=== PATIENT | male | born 1960 | race Caucasian/White ===

== ENCOUNTER → 2023-04-15 09:36 | Outpatient (REF) | payer BC, SELFPAY | LOC: REG 09:36 | PROVIDERS: ATTENDING PHYSICIAN Internal Medicine Geriatric Medicine | DX: Z00.00 Encounter for general adult medical examination without abnormal findings (principal); R42 Dizziness and giddiness; E03.8 Other specified hypothyroidism; E78.2 Mixed hyperlipidemia; E55.9 Vitamin D deficiency, unspecified; Z12.5 Encounter for screening for malignant neoplasm of prostate; L85.3 Xerosis cutis; Z86.010 Personal history of colon polyps; M72.2 Plantar fascial fibromatosis; R97.20 Elevated prostate specific antigen [PSA]; Z13.31 Encounter for screening for depression | CPT/HCPCS: 36415; 84153 ==

== ENCOUNTER → 2023-06-13 09:46 | Outpatient (REF) | payer BC, SELFPAY | LOC: MRI 3T 09:46 | PROVIDERS: ATTENDING PHYSICIAN Specialist; FAMILY PHYSICIAN Internal Medicine Geriatric Medicine | DX: R97.20 Elevated prostate specific antigen [PSA] (principal) | CPT/HCPCS: 72197; A9575 ==

== ENCOUNTER → 2023-10-17 08:19 | Outpatient (REF) | payer BC, SELFPAY ==
[2023-10-17 11:40] LABS: PSA, Total - Diagnostic 2.08 ng/ml (0.0-4.0)
== END ==
LOC: REG 08:19
PROVIDERS: ATTENDING PHYSICIAN Specialist; FAMILY PHYSICIAN Internal Medicine Geriatric Medicine
DX: C61 Malignant neoplasm of prostate (principal)
CPT/HCPCS: 36415; 84153

== ENCOUNTER → 2024-01-17 06:40 | Outpatient (REF) | payer BC, SELFPAY ==
[2024-01-17 08:37] LABS: PSA, Total - Diagnostic 2.26 ng/ml (0.0-4.0)
== END ==
LOC: REG 06:40
PROVIDERS: ATTENDING PHYSICIAN Specialist; FAMILY PHYSICIAN Internal Medicine Geriatric Medicine
DX: C61 Malignant neoplasm of prostate (principal)
CPT/HCPCS: 36415; 84153

== ENCOUNTER → 2024-04-19 07:12 | Outpatient (REF) | payer BC, SELFPAY ==
[2024-04-19 08:08] LABS: Urine Albumin 1+ (Neg - Trace); Urine Bilirubin Negative (Negative); Urine Character Clear (Clear); Urine Color Yellow; Urine Glucose Negative (Negative); Urine Ketone Negative (Negative); Urine Leukocyte Negative (Negative); Urine Nitrite Negative (Negative); Urine Occult Blood Negative (Negative); Urine Specific Gravity 1.015 (<1.030); Urine Urobilinogen Negative (Neg - 1+)
[2024-04-19 08:12] LABS: % Basophils 0.7 % (0-2); % Eosinophils 3.1 % (0-6); % Immature Granulocytes 0.2 % (0-0.5); % Monocytes 8.2 % (1.7-9.3); % Neutrophils 58.8 % (42.2-75.2); Absolute Eosinophils 0.2 10^3/uL (0-0.7); Absolute Lymphocytes 1.7 10^3/uL (1.2-3.4); Absolute Monocytes 0.5 10^3/uL (0.1-0.6); Absolute Neutrophils 3.4 10^3/uL (1.4-6.5); Hematocrit 41.8 % (39.0-52.0); Hemoglobin 14.2 g/dL (13.0-18.0); Mean Corpuscular Hgb 32.1 pg (27.0-31.0); Mean Corpuscular Volume 94.4 fL (80.0-94.0); Mean Platelet Volume 9.4 fL (7.4-10.4); Nucleated Red Blood Cells % 0 % (-); Platelet Count 232 10^3/uL (130-400); Red Blood Cell Count 4.43 10^6/uL (4.70-6.10); Red Cell Dist. Width 12.7 % (11.5-14.5); White Blood Cell Count 5.7 10^3/uL (4.8-10.8)
[2024-04-19 08:34] LABS: ALT (SGPT) 25 U/L (0-50); AST (SGOT) 24 U/L (17-59); Albumin 3.8 g/dl (3.5-5.0); Alkaline Phosphatase 76 U/L (38-126); Blood Urea Nitrogen 19 mg/dl (9-20); Calcium 9.2 mg/dl (8.4-10.2); Carbon Dioxide 29 mmol/L (22-30); Chloride 103 mmol/L (98-107); Glucose 101 mg/dl (70-99); HDL Cholesterol 64 mg/dl; LDL Cholesterol, Calculated 81 mg/dl; Potassium 4.5 mmol/L (3.5-5.1); Sodium 137 mmol/L (135-145); Total Bilirubin 0.6 mg/dl (0.2-1.3); Total Cholesterol 160 mg/dl (50-199); Total Protein 6.1 g/dl (6.3-8.2); Triglyceride 75 mg/dl (10-149); Very Low Density Lipoprotein 15 mg/dl (0-30); eGFR > 60.00
[2024-04-19 08:51] LABS: Free T4 1.19 ng/dl (0.78-2.19); Vitamin D, 25-OH*** 27.4 ng/mL (30-80)
[2024-04-19 09:04] LABS: TSH 3.63 uIU/ml (0.47-4.68)
[2024-04-19 10:25] LABS: Urine Mucus Many
[2024-04-19 10:26] LABS: Urine Amorphous Seen; Urine Hyaline Cast 0-2 /LPF (0-2)
[2024-04-19 10:27] LABS: Urine Red Blood Cell 0-2 /HPF (0-2); Urine White Cell 0-2 /HPF (0-5)
== END ==
LOC: REG 07:12
PROVIDERS: ATTENDING PHYSICIAN Internal Medicine Geriatric Medicine
DX: Z00.00 Encounter for general adult medical examination without abnormal findings (principal); R42 Dizziness and giddiness; E03.8 Other specified hypothyroidism; E78.2 Mixed hyperlipidemia; E55.9 Vitamin D deficiency, unspecified; L85.3 Xerosis cutis; M72.2 Plantar fascial fibromatosis; Z13.31 Encounter for screening for depression
CPT/HCPCS: 36415; 80053; 80061; 81003; 81015; 82306; 84439; 84443; 85025; 86765

== ENCOUNTER → 2024-04-23 06:28 | Outpatient (REF) | payer BC, SELFPAY ==
[2024-04-23 08:13] LABS: PSA, Total - Diagnostic 2.14 ng/ml (0.0-4.0)
== END ==
LOC: REG 06:28
PROVIDERS: ATTENDING PHYSICIAN Specialist; FAMILY PHYSICIAN Internal Medicine Geriatric Medicine
DX: C61 Malignant neoplasm of prostate (principal)
CPT/HCPCS: 36415; 84153

== ENCOUNTER → 2024-07-09 06:36 | Outpatient (REF) | payer BC, SELFPAY ==
[2024-07-09 07:55] LABS: C-Reactive Protein < 5.00 mg/L (0.0-10.00)
[2024-07-09 08:12] LABS: Free T4 1.12 ng/dl (0.78-2.19)
[2024-07-09 08:23] LABS: Erythrocyte Sed Rate 4 mm/hour (0-20)
[2024-07-10 19:34] LABS: Thyroglobulin Antibodies <1.5 IU/mL (0.0-4.0); Thyroid Peroxidase Ab (TPO) 0.4 IU/mL (0.0-9.0)
== END ==
LOC: REG 06:36
PROVIDERS: ATTENDING PHYSICIAN Internal Medicine Geriatric Medicine
DX: R42 Dizziness and giddiness (principal); E03.8 Other specified hypothyroidism; E78.2 Mixed hyperlipidemia; E55.9 Vitamin D deficiency, unspecified; L85.3 Xerosis cutis; M72.2 Plantar fascial fibromatosis; R97.20 Elevated prostate specific antigen [PSA]; Z13.31 Encounter for screening for depression; H53.2 Diplopia
CPT/HCPCS: 36415; 84439; 84443; 85652; 86041; 86140; 86376; 86800

== ENCOUNTER → 2024-07-16 06:58 | Outpatient (REF) | payer BC, SELFPAY ==
[2024-07-16 08:36] LABS: PSA, Total - Diagnostic 2.07 ng/ml (0.0-4.0)
== END ==
LOC: REG 06:58
PROVIDERS: ATTENDING PHYSICIAN Specialist; FAMILY PHYSICIAN Internal Medicine Geriatric Medicine
DX: C61 Malignant neoplasm of prostate (principal)
CPT/HCPCS: 36415; 84153

== ENCOUNTER → 2024-08-21 06:38 | Outpatient (REF) | payer BC, SELFPAY ==
[2024-08-21 08:13] LABS: ALT (SGPT) 19 U/L (0-50); AST (SGOT) 20 U/L (17-59); Albumin 3.9 g/dl (3.5-5.0); Alkaline Phosphatase 80 U/L (38-126); Blood Urea Nitrogen 21 mg/dl (9-20); Calcium 9.0 mg/dl (8.4-10.2); Carbon Dioxide 28 mmol/L (22-30); Chloride 107 mmol/L (98-107); Glucose 104 mg/dl (70-99); Potassium 4.4 mmol/L (3.5-5.1); Sodium 138 mmol/L (135-145); Total Protein 6.2 g/dl (6.3-8.2); eGFR > 60.00
== END ==
LOC: REG 06:38
PROVIDERS: ATTENDING PHYSICIAN Internal Medicine Geriatric Medicine
DX: Z01.812 Encounter for preprocedural laboratory examination (principal)
CPT/HCPCS: 36415; 80053

== ENCOUNTER → 2024-10-18 06:55 | Outpatient (REF) | payer BC, SELFPAY ==
[2024-10-18 08:45] LABS: PSA, Total - Diagnostic 2.16 ng/ml (0.0-4.0)
== END ==
LOC: REG 06:55
PROVIDERS: ATTENDING PHYSICIAN Specialist; FAMILY PHYSICIAN Internal Medicine Geriatric Medicine
DX: C61 Malignant neoplasm of prostate (principal)
CPT/HCPCS: 36415; 84153